=== PATIENT | female | born 1995 | race African-American/Black ===

== ENCOUNTER 2016-10-20 16:30 | Emergency (ER) | payer OTHER | END 2016-10-20 17:03 | disposition home or self-care (01) | LOC: CFTX 16:30 → CED 16:30 → CFTX 17:00 | DX: J06.9 Acute upper respiratory infection, unspecified (principal); J45.909 Unspecified asthma, uncomplicated; F17.210 Nicotine dependence, cigarettes, uncomplicated; Z91.018 Allergy to other foods; Z91.013 Allergy to seafood | CPT/HCPCS: 99283 ==